=== PATIENT | male | born 1945 | race Caucasian/White ===

== ENCOUNTER 2022-11-04 14:02 | Emergency (ER) | payer OTHER ==
[~2022-11-04] VITALS: Ht 175.3 cm; Wt 49.1 kg
[2022-11-04 14:35] VITALS: BP 138/88; PULSE 102; RESP 20; TEMP 99.1; O2SAT 94
[2022-11-04] MEDS ORDERED: TETANUS-DIPTH-ACEL PERTUSSIS 0.5ML SYR Tdap IM ONE (15:15)
[2022-11-04] MEDS ORDERED: CEPH500C PO (15:42)
== END 2022-11-04 15:48 | disposition home or self-care (01) ==
LOC: ER 14:02
DX: S81.012A Laceration without foreign body, left knee, initial encounter (principal); Z79.899 Other long term (current) drug therapy; W29.3XXA Contact with powered garden and outdoor hand tools and machinery, initial encounter; Y93.89 Activity, other specified; Y92.89 Other specified places as the place of occurrence of the external cause; Y99.8 Other external cause status
CPT/HCPCS: 12002; 90471; 90715; 99283; J2001

== ENCOUNTER 2022-11-11 12:25 | Emergency (ER) | payer OTHER ==
[~2022-11-11] VITALS: Ht 175.3 cm; Wt 51.7 kg
[~2022-11-11 12:25] MED LIST: CEPH500C PO
[2022-11-11 13:34] VITALS: BP 141/84; PULSE 75; RESP 18; TEMP 98.8; O2SAT 95
== END 2022-11-11 13:55 | disposition home or self-care (01) ==
LOC: ER 12:25
DX: S81.012D Laceration without foreign body, left knee, subsequent encounter (principal); X58.XXXD Exposure to other specified factors, subsequent encounter

== ENCOUNTER 2022-11-18 14:18 | Emergency (ER) | payer OTHER ==
[~2022-11-18] VITALS: Ht 175.3 cm; Wt 49.9 kg
[2022-11-18 15:21] VITALS: BP 104/71; PULSE 84; RESP 16; TEMP 97.8; O2SAT 94
[2022-11-18] MEDS ORDERED: CEPH500C PO (15:33)
== END 2022-11-18 15:39 | disposition home or self-care (01) ==
LOC: ER 14:18
DX: S81.012D Laceration without foreign body, left knee, subsequent encounter (principal); X58.XXXD Exposure to other specified factors, subsequent encounter